=== PATIENT | female | born 1945 | race Caucasian/White ===

== ENCOUNTER → 2016-06-20 | Outpatient (CLI) | payer OTHER ==
[~2016-06-20] MED LIST: AMINOPHYLLINE 25 MG/ML, 10ML ONE; ASPI-13 PO; ATOR40TA PO; LEVO125T PO; PANT40TA5 PO; REGADENOSON 0.4 MG/5 ML SYRINGE ONE; SIMV10TA3 PO
== END | disposition home or self-care (01) ==
LOC: CFH 08:10
PROVIDERS: ATTEND Nurse Practitioner Primary Care
DX: I25.89 Other forms of chronic ischemic heart disease (principal); I10 Essential (primary) hypertension; E55.9 Vitamin D deficiency, unspecified; E03.9 Hypothyroidism, unspecified; E78.2 Mixed hyperlipidemia
CPT/HCPCS: 78452; 93017; A9502; J0280; J2785

== ENCOUNTER → 2016-12-26 | Outpatient (CLI) | payer OTHER ==
[~2016-12-26] MED LIST changes: -AMINOPHYLLINE 25 MG/ML, 10ML ONE; -REGADENOSON 0.4 MG/5 ML SYRINGE ONE
== END | disposition home or self-care (01) ==
LOC: CFH 09:59
PROVIDERS: ATTEND Nurse Practitioner Primary Care
DX: M25.551 Pain in right hip (principal); G89.29 Other chronic pain; Z13.220 Encounter for screening for lipoid disorders; R53.83 Other fatigue; E55.9 Vitamin D deficiency, unspecified; E03.9 Hypothyroidism, unspecified; E78.2 Mixed hyperlipidemia; I10 Essential (primary) hypertension; K21.9 Gastro-esophageal reflux disease without esophagitis; Z78.0 Asymptomatic menopausal state; R01.1 Cardiac murmur, unspecified; R92.2 Inconclusive mammogram; R94.39 Abnormal result of other cardiovascular function study; Z79.899 Other long term (current) drug therapy

== ENCOUNTER → 2017-01-03 | Outpatient (CLI) | payer OTHER | END | disposition home or self-care (01) | LOC: CFH 08:30 | PROVIDERS: ATTEND Nurse Practitioner Primary Care | DX: M51.36 Other intervertebral disc degeneration, lumbar region (principal); M41.86 Other forms of scoliosis, lumbar region; Z13.220 Encounter for screening for lipoid disorders; R53.83 Other fatigue; E55.9 Vitamin D deficiency, unspecified; E03.9 Hypothyroidism, unspecified; E78.2 Mixed hyperlipidemia; I10 Essential (primary) hypertension; K21.9 Gastro-esophageal reflux disease without esophagitis; R01.1 Cardiac murmur, unspecified; R92.2 Inconclusive mammogram; R94.39 Abnormal result of other cardiovascular function study; M25.551 Pain in right hip; Z79.899 Other long term (current) drug therapy; Z78.0 Asymptomatic menopausal state | CPT/HCPCS: 72110 ==

== ENCOUNTER → 2017-01-04 | Outpatient (CLI) | payer OTHER | END | disposition home or self-care (01) | LOC: CFH 10:05 → EDSTATUS 10:30 | PROVIDERS: ATTEND Nurse Practitioner Primary Care | DX: Z12.31 Encounter for screening mammogram for malignant neoplasm of breast (principal); E78.2 Mixed hyperlipidemia; E03.9 Hypothyroidism, unspecified; I10 Essential (primary) hypertension; K21.9 Gastro-esophageal reflux disease without esophagitis; Z79.899 Other long term (current) drug therapy; Z78.0 Asymptomatic menopausal state | CPT/HCPCS: 77063; G0202 ==

== ENCOUNTER 2017-02-24 11:46 | Emergency (ER) | payer OTHER ==
[~2017-02-24] VITALS: Ht 162.6 cm; Wt 65.8 kg
[2017-02-24 11:47] VITALS: BP 163/95
[2017-02-24 12:43] LABS: HEMATOCRIT 41.1 % (34.6-47.8); HEMOGLOBIN 13.5 g/dL (11.7-16.4); WHITE BLOOD COUNT 7.3 x10^3/uL (3.4-10)
[2017-02-24 12:46] LABS: BLOOD UREA NITROGEN 17 mg/dL (7-18)
[2017-02-24 13:18] LABS: IS PT STATUS REG ER OR PRE ER? YES
== END 2017-02-24 14:27 | disposition home or self-care (01) ==
LOC: ED 12:59
DX: M19.042 Primary osteoarthritis, left hand (principal); M19.041 Primary osteoarthritis, right hand; M47.9 Spondylosis, unspecified; G89.29 Other chronic pain; M54.2 Cervicalgia; K21.9 Gastro-esophageal reflux disease without esophagitis; E78.5 Hyperlipidemia, unspecified
CPT/HCPCS: 36415; 72050; 80048; 82040; 84436; 84443; 84484; 85025; 93005; 99285

== ENCOUNTER → 2017-11-13 | Outpatient (CLI) | payer OTHER ==
[2017-11-13 12:30] LABS: BASOPHILS # (AUTO) 0.01 x10^3/uL (0-0.1); BASOPHILS % (AUTO) 0 % (0-1); EOSINOPHILS # (AUTO) 0.07 x10^3/uL (0-0.4); EOSINOPHILS % (AUTO) 1 % (1-7); LYMPHOCYTES # (AUTO) 1.61 x10^3/uL (1-3.4); LYMPHOCYTES % (AUTO) 25 % (22-44); MD NO; MEAN CORPUSCULAR HEMOGLOBIN 28.9 pg (27.0-34.8); MEAN CORPUSCULAR HGB CONC 31.7 g/dL (32.4-35.8); MEAN CORPUSCULAR VOLUME 91.1 fL (80-100); MEAN PLATELET VOLUME 9.7 fL (7.4-10.4); MONOCYTES # (AUTO) 0.36 x10^3/uL (0.2-0.8); MONOCYTES % (AUTO) 6 % (2-9); NEUTROPHILS # (AUTO) 4.53 x10^3/uL (1.8-6.8); NEUTROPHILS % (AUTO) 69 % (42-75); PLATELET COUNT 264 x10^3/uL (130-400); RED BLOOD COUNT 4.72 x10^6/uL (3.82-5.3)
[2017-11-13 12:50] LABS: CHLORIDE 107 mmol/L (98-107)
[2017-11-13 13:07] LABS: ALANINE AMINOTRANSFERASE 21 U/L (12-78); ALBUMIN 4.1 g/dL (3.4-5.0); ALKALINE PHOSPHATASE 86 U/L (45-117); ANION GAP 6 mmol/L (5-15); BILIRUBIN,TOTAL 0.5 mg/dL (0.2-1.0); CALCIUM 9.3 mg/dL (8.5-10.1); CHOL/HDL RATIO 3.9; CHOLESTEROL, TOTAL 277 mg/dL (140-239); CREATININE 0.83 mg/dL (0.55-1.02); HDL CHOL % 26 % (28-40); HDL CHOLESTEROL (DIRECT) 71 mg/dL (40-60); LDL CHOLESTEROL,CALCULATED 182 mg/dL (54-169); LDL/HDL RATIO 2.6 (0.5-3.0); TOTAL PROTEIN 7.8 g/dL (6.4-8.2); TRIGLYCERIDES 122 mg/dL (50-200); VLDL CHOLESTEROL 24 mg/dL (0-25)
== END | disposition home or self-care (01) ==
LOC: CFH 10:14
PROVIDERS: ATTEND Family Medicine
DX: I10 Essential (primary) hypertension (principal); E03.9 Hypothyroidism, unspecified; E55.9 Vitamin D deficiency, unspecified; M54.9 Dorsalgia, unspecified; R73.03 Prediabetes
CPT/HCPCS: 36415; 80053; 80061; 82306; 83036; 84443; 85025

== ENCOUNTER → 2017-12-02 | Outpatient (CLI) | payer OTHER | END | disposition home or self-care (01) | LOC: CFH 08:12 | PROVIDERS: ATTEND Family Medicine | DX: M47.896 Other spondylosis, lumbar region (principal); M48.061 Spinal stenosis, lumbar region without neurogenic claudication; Z88.2 Allergy status to sulfonamides | CPT/HCPCS: 72148 ==

== ENCOUNTER 2018-04-25 10:38 | Outpatient (CLI) | payer OTHER, MEDICARE ==
[2018-04-25 13:28] LABS: HEMOGLOBIN A1C 5.6 % (4.2-6.3)
[2018-04-25 13:59] LABS: ALBUMIN 3.8 g/dL (3.4-5.0); ANION GAP 7 mmol/L (5-15); CALCIUM 9.2 mg/dL (8.5-10.1); CHLORIDE 108 mmol/L (98-107)
[2018-04-25 14:11] LABS: ALANINE AMINOTRANSFERASE 26 U/L (12-78); ALKALINE PHOSPHATASE 71 U/L (45-117); BILIRUBIN,TOTAL 0.6 mg/dL (0.2-1.0); CHOL/HDL RATIO 2.6; CHOLESTEROL, TOTAL 199 mg/dL (140-239); CREATININE 0.72 mg/dL (0.55-1.02); HDL CHOL % 39 % (28-40); HDL CHOLESTEROL (DIRECT) 77 mg/dL (40-60); LDL CHOLESTEROL,CALCULATED 104 mg/dL (54-169); LDL/HDL RATIO 1.4 (0.5-3.0); THYROID STIMULATING HORMONE 0.097 mIU/L (0.358-3.740); TOTAL PROTEIN 7.6 g/dL (6.4-8.2); TRIGLYCERIDES 89 mg/dL (50-200); VLDL CHOLESTEROL 18 mg/dL (0-25)
== END 2018-04-25 23:59 | disposition home or self-care (01) ==
LOC: CFH 10:38
PROVIDERS: ATTEND Nurse Practitioner Primary Care
DX: Z13.220 Encounter for screening for lipoid disorders (principal); E55.9 Vitamin D deficiency, unspecified; E03.9 Hypothyroidism, unspecified; E78.2 Mixed hyperlipidemia; E88.81 Metabolic syndrome and other insulin resistance; K21.9 Gastro-esophageal reflux disease without esophagitis; I10 Essential (primary) hypertension; R94.39 Abnormal result of other cardiovascular function study; R01.1 Cardiac murmur, unspecified; R53.83 Other fatigue; Z79.899 Other long term (current) drug therapy
CPT/HCPCS: 36415; 80053; 80061; 82043; 82306; 83036; 83880; 84439; 84443; 84481